=== PATIENT | male | born 1965 | race Caucasian/White ===

== ENCOUNTER 2021-11-10 19:16 | Emergency (ER) | payer OTHER, MEDICAID, SELFPAY ==
[2021-11-10] VITALS (7 sets, daily range): BP systolic 111–131; BP diastolic 65–73; PULSE 74–83; RESP 16–24; TEMP 36.9; O2SAT 96–99; BMI 22.3
--- NOTE | 2021-11-10 21:14 | PC.NURSE ---
Assessment completed on pt, receiving NIH score of 1 for partial numbness in left upper and left lower extremities that began at 1500 today. Pt states he has baseline numbness in his hands/wrists, but this was new numbness. Pt alert and oriented, no strength/coordination deficits. Pt admits to drinking too much, but would not answer exactly or approximately how much he drinks of what type of alcohol, endorses occasional marijuana smoking, denies other drug use. Pt not wanting IV or any needle pokes if not needed.
--- NOTE | 2021-11-10 22:43 | PC.NURSE ---
Pt states he wants to leave because he doesn't feel like he is dying at the moment and he states I understand there are other priorities and I feel fine right now, my numbness is now where it normally is. I can come back another time and maybe not even to an ER. Pt to be provided with number to arrange PCP.
== END 2021-11-10 23:30 | disposition left against medical advice (07) ==
PROVIDERS: Emergency Provider Emergency Medicine
CPT/HCPCS: 99283